=== PATIENT | male | born 1970 | race Caucasian/White ===

== ENCOUNTER 2021-07-07 09:34 | Inpatient (IN) | payer OTHER ==
[~2021-07-07] VITALS: Ht 180.3 cm; Wt 127.9 kg
[2021-07-13] MEDS ORDERED: ZOLOFT 50 MG TA50 MG PO (12:56)
[2021-07-13] MEDS ORDERED: LEVOTHYROXINE150 MCG PO (12:57)
[2021-07-13] MEDS ORDERED: ATENOLOL 100MG100 MG PO (12:57)
[2021-07-13] MEDS ORDERED: LOSARTAN POTAS100 MG PO (12:58)
[2021-07-13] MEDS ORDERED: LANSOPRAZOLE30 MG PO (12:58)
[2021-07-13] MEDS ORDERED: METFORMIN HCL500 M1 PO (12:59)
[2021-07-13] MEDS ORDERED: TRIAMTERENE-HC1 EAC2 PO (13:00)
[2021-07-13] MEDS ORDERED: FLONASE 0.05%50 MCG NARES (13:00)
[2021-07-13] MEDS ORDERED: OXYCODONE HCL10 MG PO (13:01)
[2021-07-13] MEDS ORDERED: DOXYCYCLINE 10100 M2 PO (13:02)
[2021-07-13] MEDS ORDERED: FLUCONAZOLE200 MG PO (13:03)
--- NOTE | 2021-07-14 12:26 | EKG ---
[address] [address] ELECTROCARDIOGRAM REPORT Name: LUBNAJAZLYN GUTHRIE Room #: 150-5 ADM IN M.R.#: [id number] Admission: 07/14/21 Attend Phys: Tenzin Nina MD Discharge: Date of : 72 Report #: [id number] [facility] Test Date: 2021-07-14 Test Time: 12:10:25 Pat Name: JAZLYN WILLSON Department: Room: Gender: Python Engineer: TYRONE : 1970 Requested By: Tenzin Nina Order Number: [id number] : Sundar Charlton Measurements Intervals [place] Rate: 83 P: 41 PA: 169 QRS: 8 QRSD: 101 T: 18 QT: 370 QTc: 435 Interpretive Statements Sinus rhythm No previous ECG available for comparison Electronically Signed On 07-14-2021 12:26:15 CERTIFIED HYPERBARIC TECHNICIAN by Sundar Charlton [email or web address] <ELECTRONICALLY SIGNED> By: Sundar Charlton MD, [facility] 07/14/21 1226 1210 1210 Sundar Charlton MD, FACC /EPI
[2021-07-14 13:08] VITALS: BP 139/83
--- NOTE | 2021-07-14 18:09 | NUR ---
ASSUMED CARE OF PT AT 1546 THIS AFTERNOON FROM PACU. PT HAD TRANSMETATARSAL AMPUTATION OF THE LT FOOT. KERLEX WRAP WITH FREEDOM BANGADGE IN PLACE ALONG WITH HEMOVAC. APPROX 15ML OF DRAINADGE SHOWING. ASSESSMENTS AND CARE PLAN PERFORMED BY RN AND NOTED IN CHART. MEDS IN RECONCILLIATION SUBMITTED FOR REVIEW AND WAITING FOR PHYSICIAN TO ACCEPT AND PLACE IN [place]. PT STATED PAIN IN STARTING TO INCREASE. DESCRIBED SHARP ELECTRICAL TYPE PAIN INTERMITANT. PT WAS GIVEN 4MG MORPHINE IVP BY RN. NO RELIEF AFTER ONE HOUR. PAGED DR. SWANN'S OFFICE AND AWAITING RETURN CALL FROM [facility]EL[facility] 2ND SHIFT PHYSICIAN. WILL CONTINUE TO MONITOR AND NOTE ANY CHANGES.
[2021-07-14 19:10] VITALS: BP 162/76
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
[2021-07-15 06:01] LABS: ABSOLUTE NEUTROPHILS 12.5 thou/uL (1.4-8.2); BASOPHILS 0.1 % (0.0-2.0); HEMATOCRIT 38.8 % (42.0-52.0); HEMOGLOBIN 12.6 gm/dL (14.0-18.0); LYMPHOCYTES 6.8 % (24.0-44.0); MCH 27.7 pg (26.0-34.0); MCHC 32.4 g/dL (28.0-37.0); MCV 85.4 fL (80.0-100.0); MONOCYTES 3.5 % (1.0-8.0); PLATELET COUNT 205 thou/uL (150-400); POLYS 89.6 % (36.0-66.0); RBC 4.55 mil/uL (4.50-6.00); RDW 17.5 % (10.5-14.5)
[2021-07-15 06:30] LABS: ALBUMIN 2.8 g/dL (3.4-5.0); CALCIUM 8.3 mg/dL (8.5-10.1); CREATININE 1.3 mg/dL (0.7-1.3); POTASSIUM 3.6 mmol/L (3.5-5.1); TOTAL BILIRUBIN 0.3 mg/dL (0.2-1.0); TOTAL PROTEIN 6.9 g/dL (6.4-8.2)
[2021-07-15 07:59] VITALS: BP 123/60
--- NOTE | 2021-07-15 09:24 | NUR ---
Mr. Eubanks is a pleasant 50-year-old male. DX: OSTEO LEFT FOOT S/P TMA. 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 Yesterday patient underwent an elective left trans metatarsal amputation. Having pain. Gabapentin was initiated. NWB. IV ABX. Chart review. He lives at home alone. Has steps into his home. He up working with therapy. He will be requiring a fww and with provider plus delivering prior to dc. Donation crutch to assist with his mobility into his home. Will cont. following if needs arise for discharge home.
[2021-07-15 09:28] LABS: FOLIC ACID 3.4 ng/mL (8.6-58.9)
--- NOTE | 2021-07-15 11:47 | NUR ---
RE-ASSUMED CARE THIS MORNING AT 0700. WILL CONTINUE CARE AND ASSESSMENTS ARE CHARTED, OTHERWISE UNREMARKABLE. PT WAS ABLE TO SLEEP THROUGH THE NIGHT AFTER MEDS WERE GIVEN. FALL PRECAUTIOINS ARE IN PLACE, CALL LIGHT AND OTHER NEEDS ARE IN REACH. ITALO LEAVITT IS WORKING WITH PT. PT IS UP WITH GB AND WALKER, NON WEIGHT BEARING ON LT FOOT. MEDS AND TX GIVEN NEEDED AND SCHEDULED. WILL CONTINUE TO MONITOR AND NOTE ANY CHANGES.
[2021-07-15 19:48] VITALS: BP 152/75
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
--- NOTE | 2021-07-16 00:47 | NUR ---
PT ABLE TO PIVOT ON R LEG AND MOVE FROM RECLINER BACK TO BED USING A ROLLER WALKER. HE ALSO WAS ABLE WALK TO THE BATHROOM. MORPHINE GIVEN FOR PAIN. POSTOP DRSG IN PLACE TO LEFT FOOT WELL HEMOVAC. VSS.USES URINAL AND VOIDING ADEQUATELY AD A BM TONIGHT. CALL LIGHT WITHIN REACH.
[2021-07-16 03:54] VITALS: BP 122/62
[2021-07-16 04:07] LABS: GLYCOHEMOGLOBIN (HGB A1C) 6.8 % (4.8-5.6)
[2021-07-16 05:31] LABS: ABSOLUTE NEUTROPHILS 6.7 thou/uL (1.4-8.2); BASOPHILS 0.4 % (0.0-2.0); EOSINOPHILS 1.8 % (0.0-3.0); HEMATOCRIT 37.1 % (42.0-52.0); HEMOGLOBIN 12.1 gm/dL (14.0-18.0); LYMPHOCYTES 21.8 % (24.0-44.0); MCHC 32.7 g/dL (28.0-37.0); MCV 85.7 fL (80.0-100.0); MONOCYTES 6.2 % (1.0-8.0); PLATELET COUNT 188 thou/uL (150-400); POLYS 69.8 % (36.0-66.0); RBC 4.33 mil/uL (4.50-6.00); RDW 17.8 % (10.5-14.5); WBC 9.6 thou/uL (4.0-11.0)
[2021-07-16 05:48] LABS: CALCIUM 8.1 mg/dL (8.5-10.1); CREATININE 1.1 mg/dL (0.7-1.3); POTASSIUM 3.3 mmol/L (3.5-5.1)
[2021-07-16] MEDS ORDERED: PERCOCET 7.5-31 EAC1 PO (06:47)
[2021-07-16] MEDS ORDERED: ASPIRIN EC325 M1 PO (06:47)
--- NOTE | 2021-07-16 06:54 | O ---
[facility] [place] [address] OPERATIVE REPORT Name: JAZLYN WILLSON Room #: 441-P ADM IN M.R.#: [id number] Admission: 07/14/21 Attend Phys: Tenzin Nina MD Discharge: Date of : 72 Report #: [id number] THIS REPORT FOR: cc: DAHLIA MOREL Physician not on staff Tenzin Nina MD ~ DATE OF SERVICE: 07/14/2021 PREOPERATIVE DIAGNOSIS: Left forefoot osteomyelitis. POSTOPERATIVE DIAGNOSIS: Left forefoot osteomyelitis. PROCEDURE: Left foot transmetatarsal amputation. SURGEON: Tenzin Nina MD CLOTH STOCK SORTER: None. ANESTHESIA: General. ESTIMATED BLOOD LOSS: Minimal. DRAINS: No drains. TOURNIQUET TIME: 30 minutes. DESCRIPTION OF PROCEDURE: The patient was brought to the operating room where he was placed under general anesthesia. Once under adequate general anesthesia, his left lower extremity was prepped and draped in a sterile manner. The extremity was elevated and tourniquet placed to 300 mmHg. A fishmouth-type incision about the forefoot was then made. This was dissected sharply down to the bone. Here, the bone was transected in the first metatarsal midway through the metatarsal and then similarly across the remainder of the metatarsals in an oblique fashion and a cascading-type fashion. Once this was complete, the remainder of the soft tissue from the forefoot was sharply incised off of the bone and the entire forefoot was then removed. The wound was then irrigated copiously. Any stray tendinous tissue was removed sharply with a tenotomy scissor and the wound was then closed over a Hemovac drain with 2-0 nylon suture in a simple stitch manner. The wound was then dressed with Xeroform, 4 x 4's, and a sterile soft compressive dressing was placed. Tourniquet was let down at 30 minutes. There were no complications from the procedure. The patient tolerated the procedure well and was to the recovery room without incident. <ELECTRONICALLY SIGNED> By: Tenzin Nina MD 07/16/21 0654 1242 1252 Tenzin Nina MD /nt
[2021-07-16 08:00] VITALS: BP 133/77
--- NOTE | 2021-07-16 08:41 | NUR ---
Consult for IV ABX. Referral sent to [facility] home infusion. IV zosyn 4.5 g IV every 8 hours for 1 week, call refills, CBC, CMP weekly. Referral sent to [facility].
--- NOTE | 2021-07-16 08:56 | NUR ---
73-year-old male with hypertension, hyperlipidemia, hypothyroidism, CAD with history of CABG x4, depression. The patient had a right ankle arthroscopic arthrodesis for right ankle osteoarthritis. A & o x 3, pleasant and forgetful. Noted he was requiring allot of education and queuing while working with physical therapy. He lives alone. Has support from his friend nichole. Manage his own medication and still was driving vehicle. Has borrowed a knee scooter already. He has cast on Right lower ext. and is NWB. He plans on going to [facility] for little while, but he must be able to get up and manage restroom on his own. Therapy is working with him. will cont. following as needed.
--- NOTE | 2021-07-16 09:39 | NUR ---
Assumed care of pt at 0700. Pt a&ox4. Pain controlled with prn pain medications. Dressing changed by makenna RN at shift change. Pt will have PICC line placed today. Dr Cardona notified to change pt's discharge disposition to home health services. Call light within reach. Will continue to monitor.
[2021-07-16 13:17] VITALS: BP 133/77
[2021-07-16 14:20] VITALS: BP 133/77
--- NOTE | 2021-07-16 14:55 | NUR ---
VASCULAR ACCESS NOTE TIMEOUT DONE AT 1420, 1% LIDOCAINE GIVEN FOR LOCAL. R BASILIC VEIN ACCESSED. BARD 4FR SLPP INSERTED. PICC TIP AT CAVO-ATRIAL JUNCTION. PICC IS GOOD TO USE. GUIDEWIRE REMOVED AND INTACT. PT TOLERATED PROCEDURE WELL.
[2021-07-16 15:39] VITALS: BP 133/77
--- NOTE | 2021-07-17 11:07 | PATH ---
[facility] [address] [place] [address] PATHOLOGY RPT PROCEDURE Name: DEMETRISOMAR Room #: 441-P DIS IN M.R.#: [id number] Admission: 07/14/21 Date of : 72 Discharge: 07/16/21 Report #: [id number] Path Case #: [id number] [facility] Accession Number: [id number] . 01 Material submitted: . foot - LEFT FOREFOOT. Modifiers: left . 01 Clinical history: . TRANSMETATARSAL AMPUTATION (RAY) LEFT FOOT OSTEOMYELITIS . 02 Diagnosis: Left forefoot, amputation: - Skin and soft tissue with acute and chronic inflammation, granulation tissue and histiocytic proliferation. - Underlying bone with empty bone marrow cavity and fibrosing type osteomyelitis. - Negative for acute osteomyelitis. - Proximal bony margin is viable. - Negative for atypia or malignancy. (ANK:elder; 07/16/2021) QMS 07/16/2021 1054 Local . 02 Electronically signed: . Trish Agrawal MD, Pathologist NPI- [id number] . 01 Gross description: . The specimen is received in formalin, labeled "Omar Eubanks, left forefoot". Received is a left forefoot amputation measuring 10.5 x 9.8 x 4.1 cm in greatest dimensions. All 5 toes are present. The metatarsal bone margins are blunt in appearance, consistent with transection, and appear grossly unremarkable. On the dorsal aspect of the foot, overlying toes 1 through 3, there is an ill-defined, reyes-brown, friable lesion measuring 9.5 x 5.8 cm, which is 0.6 cm from the closest skin margin. The nails are present, and appear grossly unremarkable on toes 2 through 5, and displays a light brown, severely thickened appearance on toe 1. Within the lesion overlying toe 1, there is a circular defect measuring 0.5 x 0.2 cm, which probes down to the underlying bone. On the lateral aspect of toe 5, there is an ill-defined, flat and white-hickman to light hickman lesion measuring 1.0 x 0.8 cm. The surgical margins are inked as follows: Toe 1-black, toe 2-blue, toe 3-yellow, toe 4-red, toe 5-orange. Sectioning through toe 1 reveals multiple segments of metal. The specimen is submitted senior outside sales representative as follows: . A1 horizontal cross-section through circular defect overlying toe 1, following decalcification [address] [address] PATHOLOGY RPT PROCEDURE Name: OMAR EUBANKS Room #: 441-P DIS IN M.R.#: [id number] Admission: 07/14/21 Date of : 72 Discharge: 07/16/21 Report #: [id number] Path Case #: [id number] A2 longitudinal cross-section through bone margin of toe 1, following decalcification A3 longitudinal cross-section through bone margin of toe 2, following decalcification A4 longitudinal cross-section through bone margin of toe 3, following decalcification A5 longitudinal cross-section through bone margin of toe 4, following decalcification A6 horizontal cross-section through lesion on lateral aspect of toe 5, following decalcification A7 longitudinal cross-section through bone margin of toe 5, following decalcification. . Gross photographs are taken. ([facility]; 07/15/2021) QA/[facility] 07/15/2021 1322 Local . 02 Pathologist provided ICD-10: M86.8X7, L08.9, L92.8 . 02 CPT . 849908, [id number] Specimen Comment: A courtesy copy of this report has been sent to [phone], [phone] Specimen Comment: [id number] Specimen Comment: Report sent to / DR MOREL Specimen Comment: A duplicate report has been generated due to demographic updates. Performed at: 01 [facility] [address] [facility] [address], [place] [id number] MD Christiano Lee MD Phone: [phone] Performed at: [address] [id number] MD Chloe Villa MD Phone: [phone]
== END 2021-07-16 16:22 | disposition home health service (06) | DRG 616 ==
LOC: EDBD → OR 09:34 → 4S 07-14 11:06 → TBA 07-14 11:06 → OR 07-14 13:20 → 4S 07-14 15:24 → EDSTATUS 07-14 16:51 → PRE 07-14 16:58 → 4S 07-16 16:22
PROVIDERS: Nurse Practitioner; Specialist; ADMIT Orthopaedic Surgery Foot and Ankle Surgery; ATTEND Orthopaedic Surgery Foot and Ankle Surgery
DX: E11.69 Type 2 diabetes mellitus with other specified complication (principal); E43 Unspecified severe protein-calorie malnutrition; M86.8X7 Other osteomyelitis, ankle and foot; E11.42 Type 2 diabetes mellitus with diabetic polyneuropathy; E66.9 Obesity, unspecified; F32.A Depression, unspecified; I10 Essential (primary) hypertension; K21.9 Gastro-esophageal reflux disease without esophagitis; Z60.2 Problems related to living alone; F17.210 Nicotine dependence, cigarettes, uncomplicated; E03.9 Hypothyroidism, unspecified; F41.9 Anxiety disorder, unspecified; M21.372 Foot drop, left foot; L97.529 Non-pressure chronic ulcer of other part of left foot with unspecified severity; E11.621 Type 2 diabetes mellitus with foot ulcer; G47.33 Obstructive sleep apnea (adult) (pediatric); E78.5 Hyperlipidemia, unspecified; Z20.822 Contact with and (suspected) exposure to COVID-19; Z68.39 Body mass index [BMI] 39.0-39.9, adult; Z99.81 Dependence on supplemental oxygen; Z71.6 Tobacco abuse counseling
CPT/HCPCS: 10102; 50010; 50101; 50386; 50951; 56525; 57091; 57180; 62110; 62900; 70005

== ENCOUNTER → 2021-08-20 | Outpatient (CLI) | payer OTHER ==
[~2021-08-20] MED LIST: ASPIRIN EC325 M1 PO; ATENOLOL 100MG100 MG PO; DOXYCYCLINE 10100 M2 PO; FLONASE 0.05%50 MCG NARES; FLUCONAZOLE200 MG PO; LANSOPRAZOLE30 MG PO; LEVOTHYROXINE150 MCG PO; LOSARTAN POTAS100 MG PO; METFORMIN HCL500 M1 PO; OXYCODONE HCL10 MG PO; PERCOCET 7.5-31 EAC1 PO; TRIAMTERENE-HC1 EAC2 PO; ZOLOFT 50 MG TA50 MG PO
== END ==
LOC: HYPER 08:13
PROVIDERS: ATTEND Emergency Medicine
DX: T87.81 Dehiscence of amputation stump (principal); L97.522 Non-pressure chronic ulcer of other part of left foot with fat layer exposed; L84 Corns and callosities; I10 Essential (primary) hypertension; G62.9 Polyneuropathy, unspecified; E03.9 Hypothyroidism, unspecified; G47.30 Sleep apnea, unspecified; E66.01 Morbid (severe) obesity due to excess calories; K21.9 Gastro-esophageal reflux disease without esophagitis; F32.9 Major depressive disorder, single episode, unspecified; F17.290 Nicotine dependence, other tobacco product, uncomplicated; Z79.82 Long term (current) use of aspirin; Z68.41 Body mass index [BMI] 40.0-44.9, adult; Y83.5 Amputation of limb(s) as the cause of abnormal reaction of the patient, or of later complication, without mention of misadventure at the time of the procedure

== ENCOUNTER → 2021-09-14 | Outpatient (CLI) | payer OTHER | LOC: HYPER 13:01 | PROVIDERS: ATTEND Emergency Medicine | DX: T87.81 Dehiscence of amputation stump (principal); E11.621 Type 2 diabetes mellitus with foot ulcer; L97.522 Non-pressure chronic ulcer of other part of left foot with fat layer exposed; E11.40 Type 2 diabetes mellitus with diabetic neuropathy, unspecified; L84 Corns and callosities; I10 Essential (primary) hypertension; E03.9 Hypothyroidism, unspecified; K21.9 Gastro-esophageal reflux disease without esophagitis; G47.30 Sleep apnea, unspecified; E66.9 Obesity, unspecified; F41.9 Anxiety disorder, unspecified; F32.9 Major depressive disorder, single episode, unspecified; F17.200 Nicotine dependence, unspecified, uncomplicated; Z68.41 Body mass index [BMI] 40.0-44.9, adult; Z79.82 Long term (current) use of aspirin; Z79.899 Other long term (current) drug therapy; Z79.84 Long term (current) use of oral hypoglycemic drugs; Y83.5 Amputation of limb(s) as the cause of abnormal reaction of the patient, or of later complication, without mention of misadventure at the time of the procedure ==

== ENCOUNTER → 2021-09-29 | Outpatient (CLI) | payer OTHER | LOC: HYPER 11:36 | PROVIDERS: ATTEND Emergency Medicine | DX: T87.81 Dehiscence of amputation stump (principal); E11.621 Type 2 diabetes mellitus with foot ulcer; L97.522 Non-pressure chronic ulcer of other part of left foot with fat layer exposed; I10 Essential (primary) hypertension; L84 Corns and callosities; E03.9 Hypothyroidism, unspecified; K21.9 Gastro-esophageal reflux disease without esophagitis; G47.30 Sleep apnea, unspecified; E66.9 Obesity, unspecified; F41.9 Anxiety disorder, unspecified; F32.9 Major depressive disorder, single episode, unspecified; F17.200 Nicotine dependence, unspecified, uncomplicated; Z68.41 Body mass index [BMI] 40.0-44.9, adult; Z79.82 Long term (current) use of aspirin; Z79.84 Long term (current) use of oral hypoglycemic drugs; Z79.899 Other long term (current) drug therapy; Y83.5 Amputation of limb(s) as the cause of abnormal reaction of the patient, or of later complication, without mention of misadventure at the time of the procedure ==